=== PATIENT | male | born 1940 | race Caucasian/White ===

== ENCOUNTER → 2017-10-01 | Outpatient (CLI) | payer MEDICARE, OTHER ==
[~2017-10-01] MED LIST: CIPRO500 MG PO; FLAGYL500 MG PO; FLONASE 0.05%50 MCG INH; LEVAQUIN 500 M500 M2 PO; LEVOTHYROXINE0.05 MG PO; PROSCAR 5MG TABL5 MG PO; UROXATRAL PO
== END ==
LOC: M.ULTRA 13:00
DX: I63.9 Cerebral infarction, unspecified (principal); M48.02 Spinal stenosis, cervical region; M25.78 Osteophyte, vertebrae; E03.9 Hypothyroidism, unspecified

== ENCOUNTER → 2017-10-08 | Outpatient (CLI) | payer MEDICARE, OTHER | LOC: M.MRI 13:08 | DX: M47.812 Spondylosis without myelopathy or radiculopathy, cervical region (principal); M50.223 Other cervical disc displacement at C6-C7 level; K83.0 Cholangitis; R93.7 Abnormal findings on diagnostic imaging of other parts of musculoskeletal system; E03.9 Hypothyroidism, unspecified; K21.9 Gastro-esophageal reflux disease without esophagitis; I10 Essential (primary) hypertension; Z87.891 Personal history of nicotine dependence ==

== ENCOUNTER 2018-02-02 12:56 | Emergency (ER) | payer MEDICARE, OTHER ==
[~2018-02-02] VITALS: Ht 182.9 cm; Wt 83.9 kg
[2018-02-02] MEDS ORDERED: FLAGYL500 M1 PO (13:27)
[2018-02-02 13:47] LABS: ABSOLUTE EOSINOPHILS 0.2 thou/uL (0.0-0.7); ABSOLUTE LYMPHOCYTES 1.9 thou/uL (0.8-5.3); ABSOLUTE MONOCYTES 0.8 thou/uL (0.0-1.2); ABSOLUTE NEUTROPHILS 9.5 thou/uL (1.6-8.1); BASOPHILS 0.3 %; EOSINOPHILS 1.8 %; HEMATOCRIT 44.4 % (42.0-52.0); HEMOGLOBIN 14.7 gm/dL (14.0-18.0); LYMPHOCYTES 15.1 %; MCH 29.5 pg (26.0-34.0); MCHC 33.3 g/dL (28.0-37.0); MCV 88.9 fL (80.0-100.0); MONOCYTES 6.1 %; MPV 9.4 fl. (7.2-11.1); NUCLEATED RBCS 0 /100WBC; PLATELET COUNT* 335 thou/uL (150-400); POLYS 76.7 %; RBC 4.99 mil/uL (4.50-6.00); RDW-CV 14.3 % (10.5-14.5); WBC 12.4 thou/uL (4.0-11.0)
[2018-02-02 13:56] LABS: ANION GAP 12 mmol/L (7-16); BUN 59 mg/dL (7-18); CALCIUM 9.6 mg/dL (8.5-10.1); CHLORIDE 101 mmol/L (98-107); CO2 23 mmol/L (21-32); CREATININE 3.4 mg/dL (0.6-1.3); GLUCOSE 141 mg/dL (70-99); POTASSIUM 4.4 mmol/L (3.5-5.1); SODIUM 136 mmol/L (136-145)
[2018-02-02 13:57] LABS: APTT 24.5 Seconds (25.0-31.3); PROTIME 10.6 Seconds (9.20-11.50)
[2018-02-02 14:04] LABS: ALBUMIN 3.7 g/dL (3.4-5.0); ALKALINE PHOSPHATASE 288 U/L (46-116); SGOT 38 U/L (15-37); SGPT 58 U/L (30-65); TOTAL BILIRUBIN 0.7 mg/dL (<0.1-1.0); TOTAL PROTEIN 9.1 g/dL (6.4-8.2); TROPONIN-I LEVEL <0.06 ng/mL (<0.06)
[2018-02-02 15:02] LABS: URINE BLOOD NEGATIVE (Negative); URINE CLARITY CLEAR; URINE COLOR DARK YELLOW; URINE GLUCOSE-RANDOM NEGATIVE (Negative); URINE KETONES NEGATIVE (Negative); URINE LEUKOCYTES-REFLEX TRACE (Negative); URINE NITRITE-REFLEX NEGATIVE (Negative); URINE PROTEIN TRACE (Negative); URINE SPECIFIC GRAVITY >= 1.030 (1.005-1.030); URINE UROBILINOGEN 0.2 E.U./dl (0.2-1.0)
[2018-02-02 15:07] LABS: ICTOTEST (BILI CONFIRMATORY) Negative (Negative); URINE BILIRUBIN 1+ (Negative)
[2018-02-02 15:25] LABS: URINE WBC-REFLEX 0-5 Rare /HPF (0-5)
[2018-02-02 15:34] LABS: SQUAMOUS 4-10 Moderate /LPF (0-3)
[2018-02-02 15:35] LABS: TRANSITIONAL EPITHEL CELL 0-3 Few /LPF (None Seen); URINE RBC None Seen /HPF (0-2)
[2018-02-02 15:36] LABS: CALCIUM OXALATE 4-10 Moderate /LPF (None Seen); HYALINE CASTS 4-10 Moderate /LPF (None Seen); MUCUS 0-3 Light strn/LPF (None Seen)
--- NOTE | 2018-02-02 16:23 | EKG ---
[place] [address] ELECTROCARDIOGRAM REPORT Name: MUSA ESPAÑA Room: [facility]#: [id number] Admission: 02/02/18 Attend Phys: Discharge: Date of : 42 Report #: [id number] THIS REPORT FOR: //name// [facility] ED Test Date: 2018-02-02 Test Time: 13:27:57 Pat Name: MUSA ESPAÑA Department: Room: Gender: Stonehand: Nohemy VICENTE : 1940 Requested By: Ruben Samayoa Order Number: [id number] MD: Adalid Calvillo Measurements Intervals [place] Rate: 71 P: 37 OR: 146 QRS: 6 QRSD: 97 T: 42 QT: 377 QTc: 410 Interpretive Statements Sinus rhythm Atrial premature complex Minimal ST elevation, inferior leads Compared to ECG 04/24/2015 12:44:46 Atrial premature complex(es) now present ST (T wave) deviation now present Electronically Signed On 02-02-2018 16:23:41 NIB INSPECTOR by Adalid Calvillo [email or web address] <ELECTRONICALLY SIGNED> By: Adalid Calvillo MD, [facility] 02/02/18 1623 [id number] Adalid Calvillo MD, [facility] /EPI
[2018-02-02 17:09] VITALS: BP 131/73
== END 2018-02-02 17:14 | disposition short-term general hospital (02) ==
LOC: M.ERS 12:56
PROVIDERS: Emergency Medicine Emergency Medical Services
DX: N19 Unspecified kidney failure (principal); R42 Dizziness and giddiness; E03.9 Hypothyroidism, unspecified; N40.0 Benign prostatic hyperplasia without lower urinary tract symptoms; Z88.1 Allergy status to other antibiotic agents; Z88.8 Allergy status to other drugs, medicaments and biological substances; Z90.49 Acquired absence of other specified parts of digestive tract; Z98.890 Other specified postprocedural states

== ENCOUNTER 2021-03-30 16:28 | Emergency (ER) | payer MEDICARE, OTHER ==
[~2021-03-30] VITALS: Ht 182.9 cm; Wt 83.9 kg
[~2021-03-30 16:28] MED LIST changes: +FLAGYL500 M1 PO
[2021-03-30] MEDS ORDERED: CEPHALEXIN500 MG PO (17:34)
[2021-03-30] MEDS ORDERED: APAP W/CODEINE1 TA2 PO (18:33)
[2021-03-30 18:44] VITALS: BP 137/70
== END 2021-03-30 18:44 | disposition home or self-care (01) ==
LOC: M.ERS 16:28
DX: S91.312A Laceration without foreign body, left foot, initial encounter (principal); E03.9 Hypothyroidism, unspecified; Z90.89 Acquired absence of other organs; Z90.49 Acquired absence of other specified parts of digestive tract; Z79.891 Long term (current) use of opiate analgesic; Z79.899 Other long term (current) drug therapy; Z88.1 Allergy status to other antibiotic agents; Z88.6 Allergy status to analgesic agent; Z88.8 Allergy status to other drugs, medicaments and biological substances; Z91.09 Other allergy status, other than to drugs and biological substances; Z88.9 Allergy status to unspecified drugs, medicaments and biological substances; W29.3XXA Contact with powered garden and outdoor hand tools and machinery, initial encounter; Y93.89 Activity, other specified; Y92.89 Other specified places as the place of occurrence of the external cause; Y99.8 Other external cause status